=== PATIENT | female | born 1985 ===

== ENCOUNTER 2025-01-27 14:13 | Outpatient (REF) | payer SELFPAY ==
[2025-01-27 17:32] LABS: Cholesterol 139 mg/dL (<200); HDL Cholesterol 55 mg/dL (>40)
[2025-01-27 17:36] LABS: Hemoglobin A1C 5.4 % (<5.7)
== END 2025-01-27 14:14 | disposition home or self-care (01) ==
LOC: NCHCN 14:13
PROVIDERS: Visit Provider Student in an Organized Health Care Education/Training Program
DX: Z13.1 Encounter for screening for diabetes mellitus (principal); Z13.220 Encounter for screening for lipoid disorders
CPT/HCPCS: 80061; 83036